=== PATIENT | female | born 1980 | race Caucasian/White ===

== ENCOUNTER → 2016-03-30 | Outpatient (CLI) | payer OTHER ==
[~2016-03-30] VITALS: Ht 172.7 cm; Wt 71.4 kg
[~2016-03-30] MED LIST: BUTALB-APAP-CA1 EACH PO; CYMBALTA60 MG PO; HYDROCODONE-APA1 TA1 PO; METAXALONE400 MG PO; PROBIOTIC1 EAC1 PO; PROPRANOLOL 8080 MG PO; STOOL SOFTENER100 MG PO; TRAMADOL 50 MG50 MG PO; VITAMIN B-12500 MCG PO; ZANAFLEX2 M1 PO; ZANTAC 150MG T150 MG PO
--- NOTE | ~2016-03-30 | HPC ---
[facility] [place] [address] PAIN MANAGEMENT CONSULTATION Name: GEEN ACUÑA Room #: REG [facility].#: [id number] Admission: 03/30/16 Attend Phys: Werner Acuña DO Discharge: Date of : 76 Report #: [id number] THIS REPORT FOR: //name// CC: Mora Acuña HISTORY: The patient is a very pleasant 35-year-old female who I have treated for some time at [facility]. She is status post cervical decompressive laminectomy, has component of some migraine headaches and myofascial pain, requiring complex medication management. She was last seen in pain clinic back in September. She returns to the pain clinic today noting medications are helpful to provide sufficient analgesia to participate in activities of daily living. 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 She has a 3-year-old child. This is an active and engaged parent. She returns to the pain clinic today noting pain is primarily in the neck and shoulders and seems to be getting a little bit worse. Fortunately, radicular symptoms are fairly nominal at this point. Rates the pain a 3/10 at present, gets up to a 6-7 with activity. She notes the pain is exacerbated with sitting or working at the computer. Does get some relief with stretching. PHYSICAL EXAMINATION: GENERAL: Shows a 35-year-old female. BMI is 23.9 kilograms per meter squared. VITAL SIGNS: Stable as noted in the EMR. MUSCULOSKELETAL: Cervical range of motion is limited, with tenderness in the splenius capitis and trapezius. No discrete trigger points are noted, but there is a fair bit of spasm here. Upper extremity strength is generally symmetric at this time. Biceps, triceps and brachioradialis reflexes are symmetric. She denies any myelopathic symptoms. Gait is tandem. Lower extremity strength is preserved. We reviewed the fact that opiate medications are being used to provide analgesia adequate to support activities of daily living, not attempting to achieve a specific pain score on the 0-10 Visual Analog Scale. The current opiate medications are providing sufficient analgesia to allow the patient to participate in activities of daily living. The patient is not exhibiting any aberrant behavior suggestive of drug diversion. The patient is not having any adverse reactions to medications. The patient is not suffering from daytime somnolence or mental acuity changes. The patient is managing opiate-induced constipation with appropriate [id number] agents and dietary considerations. The patient was counseled on concern for caution with operating a motor vehicle while using opiate medications. A physical exam was performed and the patient's functional status was evaluated. All patients with back pain were advised against the bed rest greater than 4 days and were advised to return to normal activities. [place] [address] PAIN MANAGEMENT CONSULTATION Name: GENE ACUÑA Room #: REG [facility]#: [id number] Admission: 03/30/16 Attend Phys: Werner Acuña DO Discharge: Date of : 76 Report #: [id number] noted and the treatment plan was reviewed with the patient. All current medications, both prescribed and OTC were reviewed and reconciled on the electronic medical record. Tobacco screening was accomplished and smoking cessation was advised when indicated. BMI was noted and diet/exercise modification was recommended for all patients following outside normal parameters. I reviewed with the patient today their responsibilities to safeguard prescription medications, reviewed their responsibility to utilize medications only as prescribed by the physician. They are to seek and receive pain medications only from 1 physician group ( [facility]). They are to use 1 pharmacy and keep the clinic informed if they change pharmacies. Their responsibilities include making followup visits in a timely fashion and to avoid abrupt discontinuation of medication usage. Their responsibilities further include bringing their medications (bottles from the pharmacy with residual pills) to the visit for possible confirmation of pill counts and the patient understands it is their responsibility to submit to random drug screens to ensure both that the medications prescribed are present, and that no other controlled substances are present. All prescriptions provided today were generated electronically. ASSESSMENT: Cervical radiculopathy, status post decompressive laminectomy; chronic headaches, requiring complex medication management and myofascial pain component. RECOMMENDATIONS: 1. Continue propranolol 80 mg b.i.d. 2. Fioricet as needed for headaches, fairly infrequent use. 3. Tramadol 50 mg up to 4 times a day for pain. 4. Hydrocodone 7.5/325, dispensed 100 tablets. This typically lasts 4-5 months. She uses this only with significant pain. 5. Discontinue meloxicam due to gastroesophageal reflux. 6. Lastly, she has been on tizanidine for spasm. She notes that this is losing efficacy. After discussion, we have elected to rotate to metaxalone 400 mg 1-2 tablets 3 times a day for spasm, limit 100 tablets with 2 refills. 7. Lastly, we talked about smoking cessation. The patient has continued to smoke, albeit less than a pack a day. The patient was discharged in good and stable condition. Followup is p.r.n. <ELECTRONICALLY SIGNED> By: Werner Acuña DO 03/31/16 0905 [id number] Werner Acuña DO /nt
[2016-03-30 14:43] VITALS: BP 114/74
== END | disposition home or self-care (01) ==
LOC: EDBD 07:24 → PAIN 07:24
DX: M79.1 Myalgia (principal); G43.909 Migraine, unspecified, not intractable, without status migrainosus

== ENCOUNTER → 2016-06-15 | Outpatient (CLI) | payer OTHER ==
[~2016-06-15] VITALS: Ht 172.7 cm; Wt 72.1 kg
[~2016-06-15] MED LIST changes: +SOMA250 MG PO
--- NOTE | ~2016-06-15 | HPC ---
[facility] [address] [place] [address] PAIN MANAGEMENT CONSULTATION Name: GENE ACUÑA Room #: REG [facility].#: [id number] Admission: 06/15/16 Attend Phys: Werner Acuña DO Discharge: Date of : 76 Report #: [id number] THIS REPORT FOR: //name// CC: Mora Acuña The patient is a very pleasant 35-year-old female well known to the pain clinic. I have been treating her for cervical radiculopathy and subsequent cervical radiculopathy status post ACDF. For many years she has ongoing headaches, chronic pain syndrome requiring complex medication management. She was last seen in the pain clinic 03/30/2016. We continued baseline medication including hydrocodone 7.5/325, limit 100 tablets for 30 days, discontinued Meloxicam due to gastritis, continued tizanidine for spasm, tramadol 50 mg up to 4 times a day, Fioricet 60 tablets up to t.i.d. for headaches, propranolol 80 mg b.i.d. She returns to the pain clinic today, the 100 hydrocodone tablets had lasted nearly 3 months. She notes, however, the symptoms are increasing with pain in the neck, shoulder and arms, averaging up to a 7-8 on a 0-10 visual analog scale. She states there is a cramping, "wringing" sensation in her shoulders, pressure sensation. PHYSICAL EXAMINATION: GENERAL: Shows a 35-year-old female, BMI is kilograms per meter squared. She continues to smoke, was counseled regarding same. VITAL SIGNS: Stable. MUSCULOSKELETAL: Cervical range of motion is limited in all plans, well-healed surgical scar compatible with prior ACDF. Upper extremity strength is diminished, but symmetric. Abduction exacerbates pain. Deep tendon reflexes are preserved. Positive Lhermitte's tenderness in the cervical facets. Does have a little photophobia today. DIAGNOSTIC STUDIES: Most recent MRI of the cervical spine is from July 2014, approximately 2 years ago. At that time, we noted a fairly significant stenosis at C5-C6 down to 0.61 cm. I suggest that she follow up with neurosurgeon, she did and they suggested postponing surgery. ASSESSMENT: Symptomatic cervical radiculopathy status post decompressive laminectomy, chronic headaches, requiring complex medication management. RECOMMENDATIONS: 1. We will seek authorization for epidural injection under fluoroscopy today given fairly tight cervical stenosis, failure of conservative therapy including nonsteroidal anti-inflammatory medications (Meloxicam, ibuprofen and aspirin via Excedrin), failed conservative therapy including range of motion and physical therapy. Has failed prior surgery albeit this was some 6 years ago. She has prior had cervical epidural injection in the distant past, perhaps 5 years ago with good (greater than 50%) relief for greater than 3 months. We will seek authorization for fluoroscopic guided cervical epidural injection at next visit, [place] [address] PAIN MANAGEMENT CONSULTATION Name: GENE ACUÑA Room #: REG [facility]#: [id number] Admission: 06/15/16 Attend Phys: Werner Acuña DO Discharge: Date of : 76 Report #: [id number] I have taken the liberty of renewing hydrocodone 10/325 up to 3-4 tablets a day, limit 100 tablets, renewed Fioricet 60 tablets and will have patient discontinue tizanidine, start Soma 250 mg 1 tablet 2-3 times a day, limit 75 tablets for 30 days. By: [id number] Werner Acuña DO /caleb
[2016-06-15 12:59] VITALS: BP 114/64
== END ==
LOC: PAIN 07:02
DX: M54.12 Radiculopathy, cervical region (principal); R51 Headache; F17.210 Nicotine dependence, cigarettes, uncomplicated